=== PATIENT | female | born 1990 | race African-American/Black ===

== ENCOUNTER 2020-06-04 08:13 | Emergency (ER) | payer SELFPAY ==
[2020-06-04 13:53] LABS: SARS-CoV-2 PCR by NAA Not Detected (NotDetected)
== END 2020-06-04 10:58 | disposition home or self-care (01) ==
LOC: ERS 08:13
DX: J20.9 Acute bronchitis, unspecified (principal); Z20.822 Contact with and (suspected) exposure to COVID-19; F17.210 Nicotine dependence, cigarettes, uncomplicated
CPT/HCPCS: 36415; 71045; 85379; 87635; 93005; U0003; U0005